=== PATIENT | male | born 1990 ===

== ENCOUNTER 2017-12-03 04:00 | Emergency (ER) | payer SELFPAY ==
[2017-12-03] MEDS ORDERED: IBUPROFEN 800 MG TAB PO (07:00)
== END 2017-12-03 06:45 | disposition home or self-care (01) ==
LOC: E/R 04:00
DX: T74.21XA Adult sexual abuse, confirmed, initial encounter (principal); S00.03XA Contusion of scalp, initial encounter; Y04.8XXA Assault by other bodily force, initial encounter; Y92.9 Unspecified place or not applicable
CPT/HCPCS: 70450; 74018; 80306; 99284-25